=== PATIENT | male | born 1975 | race Two or more races ===

== ENCOUNTER 2016-12-11 17:21 | Emergency (ER) | payer MEDICAID, OTHER ==
[~2016-12-11] VITALS: Ht 175.3 cm; Wt 68.0 kg
[2016-12-11 18:52] LABS: Basophils # (auto) 0 uL; Basophils % (auto) 0.3 % (0.0-2.0); DEFINITIVE VIEW TRANSMISSION; Eosinophils # (auto) 0 uL; Eosinophils % (auto) 0.8 % (0.0-7.0); Hematocrit 38.9 % (41.0-53.0); Hemoglobin 12.4 g/dL (13.5-17.5); Lymphocytes # (auto) 1.9 uL; Lymphocytes % (auto) 45.3 % (10.0-50.0); Mean Corpuscular Hgb Conc. 31.9 g/dL (32.0-36.0); Mean Corpuscular Volume 78.4 fL (80.0-100.0); Mean Platelet Volume 8.3 fL (7.4-10.4); Monocytes # (auto) 0.2 uL; Neutrophils # (auto) 2.1 uL; Neutrophils % (auto) 48.6 % (37.0-80.0); Platelet Count (auto) 317 10^3/uL (140-450); Red Cell Distribution Width 22.3 % (11.6-16.0); White Blood Cell 4.3 10^3/uL (4.4-10.8)
[2016-12-11 19:12] LABS: Albumin 4.2 g/dL (3.4-5.0); Anion Gap 12 (5-15); Aspartate Aminotransferase 16 U/L (15-37); BUN/Creatinine Ratio 7.6; Blood Urea Nitrogen 6 mg/dL (7-18); Calcium 8.8 mg/dL (8.5-10.1); Carbon Dioxide 23 mmol/L (21-32); Chloride 106 mmol/L (98-107); GFR African American 141 mL/min; GFR Non-African American 117 mL/min; Glucose 89 mg/dL (74-106); Potassium 3.8 mmol/L (3.5-5.1); Sodium 141 mmol/L (136-145)
[2016-12-11 19:16] LABS: Alkaline Phosphatase 60 U/L (45-117); Bilirubin, Total 0.3 mg/dL (0.2-1.0); Total Protein 7.7 g/dL (6.4-8.2)
[2016-12-11 19:37] LABS: Anisocytosis Slight; Hypochromia Slight; Ovalocytes FEW; Platelet Estimate Adequate
[2016-12-11] MEDS ORDERED: diphenhdrAMINE HCL 50 MG/1 ML VL IV ONE (20:00)
[2016-12-11] MEDS ORDERED: MORPHINE SULF INJ 2 MG/ML SYRINGE 1ML IV ONE (21:15)
[2016-12-11] MEDS ORDERED: LORazepam 2MG/ML-1ML VIAL IV ONE (22:15)
[2016-12-12 00:18] VITALS: BP 136/82
== END 2016-12-12 00:21 | disposition home or self-care (01) ==
LOC: EDUNIT# 17:21 → ER 17:21
DX: R07.89 Other chest pain (principal); F12.10 Cannabis abuse, uncomplicated; F10.120 Alcohol abuse with intoxication, uncomplicated; F17.210 Nicotine dependence, cigarettes, uncomplicated; Z88.8 Allergy status to other drugs, medicaments and biological substances; Z88.6 Allergy status to analgesic agent
CPT/HCPCS: 36415; 71010; 80053; 84484; 85025; 93005; 96374; 96375; 99285; J1200; J2060; J2270

== ENCOUNTER 2016-12-25 14:12 | Emergency (ER) | payer SELFPAY ==
[~2016-12-25] VITALS: Ht 167.6 cm; Wt 63.5 kg
[2016-12-25] MEDS ORDERED: LORazepam 2MG/ML-1ML VIAL ONE (14:17)
[2016-12-25] MEDS ORDERED: LORazepam 2MG/ML-1ML VIAL IV ONE (15:30)
[2016-12-25] MEDS ORDERED: diphenhdrAMINE HCL 50 MG/1 ML VL IV ONE (15:30)
[2016-12-25] MEDS ORDERED: SODIUM CHLORIDE 0.9% 1,000 ML IV ONE (16:00)
[2016-12-25 17:07] VITALS: BP 113/64
[2016-12-25 17:48] LABS: Urine Bilirubin Negative (Negative); Urine Blood Negative /uL (Negative); Urine Glucose Normal (Normal); Urine Ketone Negative (Negative); Urine Nitrite Negative (Negative); Urine RBC <1 /hpf (0 - 3); Urine Urobilinogen Normal (Negative)
[2016-12-25 17:52] LABS: Urine Color Straw (Yellow)
== END 2016-12-25 19:42 | disposition home or self-care (01) ==
LOC: ER 14:12
DX: F10.129 Alcohol abuse with intoxication, unspecified (principal); Y90.9 Presence of alcohol in blood, level not specified; F12.10 Cannabis abuse, uncomplicated; F17.210 Nicotine dependence, cigarettes, uncomplicated; Z59.0 Homelessness; Z88.6 Allergy status to analgesic agent
CPT/HCPCS: 81001; 96361; 96374; 96375; 99284; J1200; J2060; J7030

== ENCOUNTER 2017-09-29 18:11 | Emergency (ER) | payer MEDICAID ==
[~2017-09-29] VITALS: Ht 167.6 cm; Wt 63.5 kg
[2017-09-29] MEDS ORDERED: LORazepam 2MG/ML-1ML VIAL ONE (18:38)
[2017-09-29] MEDS ORDERED: diphenhdrAMINE HCL 50 MG/1 ML VL ONE (18:57)
[2017-09-29] MEDS ORDERED: LORazepam 2MG/ML-1ML VIAL IM ONE (19:00)
[2017-09-29] MEDS ORDERED: diphenhdrAMINE HCL 50 MG/1 ML VL IV ONE ×2 (19:15→22:15)
[2017-09-29] MEDS ORDERED: LORazepam 2MG/ML-1ML VIAL IV ONE (19:15)
[2017-09-29] MEDS ORDERED: SODIUM CHLORIDE 0.9% 1,000 ML IV SCH ×2 (19:45→20:00)
[2017-09-29 19:58] LABS: Albumin 3.9 g/dL (3.4-5.0); BUN/Creatinine Ratio 8.8; Calcium 8.5 mg/dL (8.5-10.1); Potassium 3.4 mmol/L (3.5-5.1)
[2017-09-29 20:00] LABS: Eosinophils # (auto) 0 uL; Lymphocytes # (auto) 1.4 uL; White Blood Cell 3.6 10^3/uL (4.4-10.8)
[2017-09-29 20:01] LABS: Basophils # (auto) 0 uL; Basophils % (auto) 0.7 % (0.0-2.0); Bilirubin, Total 0.2 mg/dL (0.2-1.0); Eosinophils % (auto) 0.2 % (0.0-7.0); Hematocrit 34.5 % (41.0-53.0); Hemoglobin 11.2 g/dL (13.5-17.5); Lymphocytes % (auto) 38.6 % (10.0-50.0); Mean Corpuscular Hemoglobin 24.6 pg (28.0-32.0); Mean Corpuscular Hgb Conc. 32.4 g/dL (32.0-36.0); Monocytes # (auto) 0.4 uL; Monocytes % (auto) 10.1 % (0.0-12.0); Neutrophils # (auto) 1.8 uL; Neutrophils % (auto) 50.4 % (37.0-80.0); Nucleated Red Blood Cells % 0.2 %; Platelet Count (auto) 285 10^3/uL (140-450); Red Blood Cells 4.55 10^6/uL (4.5-5.90); Red Cell Distribution Width 24.6 % (11.8-14.3); Total Protein 7.5 g/dL (6.4-8.2)
[2017-09-29 21:26] LABS: Urine Bacteria NONE SEEN /hpf (None Seen); Urine Blood Negative /uL (Negative); Urine Mucus FEW (None Seen); Urine WBC <1 /hpf (0 - 3)
[2017-09-29 21:42] LABS: Amphetamine Screen, Urine NEGATIVE (NEGATIVE); Barbiturate Scree,Urine NEGATIVE (NEGATIVE); Benzodiazephine Screen, Urine NEGATIVE (NEGATIVE); Cannabinoid Screen, Urine POSITIVE (NEGATIVE); Cocaine Screen, Urine NEGATIVE (NEGATIVE); Opiate Scree,Urine NEGATIVE (NEGATIVE); Phencyclidine Screen, Urine NEGATIVE (NEGATIVE)
[2017-09-29 22:45] VITALS: BP 131/76
== END 2017-09-29 23:27 | disposition home or self-care (01) ==
LOC: ER 18:11
DX: G92 Toxic encephalopathy (principal); F12.90 Cannabis use, unspecified, uncomplicated; F10.129 Alcohol abuse with intoxication, unspecified; F17.210 Nicotine dependence, cigarettes, uncomplicated; Z88.0 Allergy status to penicillin; Z88.6 Allergy status to analgesic agent; Z59.0 Homelessness
CPT/HCPCS: 36415; 51702; 70450; 80053; 80307; 81001; 82962; 85025; 96361; 96372; 96374; 96376; 99285; J1200; J2060; J7030

== ENCOUNTER 2017-10-01 23:24 | Emergency (ER) | payer MEDICAID ==
[~2017-10-01] VITALS: Ht 167.6 cm; Wt 63.5 kg
[2017-10-02] MEDS ORDERED: EPINEPHrine HCL 1 MG/1 ML AMP SC ONE
[2017-10-02] MEDS ORDERED: ALBUTEROL SULF 2.5 MG/0.5ML(0.5%) NEB SOLN NEB ONE
[2017-10-02] MEDS ORDERED: IPRATROPIUM BROM 0.5 MG/2.5ML INH SOL NEB ONE
[2017-10-02] MEDS ORDERED: SODIUM CHLORIDE 0.9% 1,000 ML IV ONE
[2017-10-02 00:30] LABS: Eosinophils # (auto) 0.1 uL; Lymphocytes # (auto) 1.7 uL; Mean Corpuscular Hemoglobin 24.2 pg (28.0-32.0); Monocytes # (auto) 0.4 uL; White Blood Cell 4.5 10^3/uL (4.4-10.8)
[2017-10-02 00:32] LABS: Basophils # (auto) 0.1 uL; Basophils % (auto) 2.1 % (0.0-2.0); Eosinophils % (auto) 1.7 % (0.0-7.0); Hematocrit 35.2 % (41.0-53.0); Hemoglobin 11.4 g/dL (13.5-17.5); Mean Corpuscular Hgb Conc. 32.2 g/dL (32.0-36.0); Monocytes % (auto) 9.1 % (0.0-12.0); Neutrophils # (auto) 2.2 uL; Neutrophils % (auto) 49.1 % (37.0-80.0); Nucleated Red Blood Cells % 0.2 %; Platelet Count (auto) 277 10^3/uL (140-450)
[2017-10-02 00:34] LABS: Red Cell Distribution Width 24.4 % (11.8-14.3)
[2017-10-02 00:46] LABS: Alanine Aminotransferase 30 U/L (16-61); Anion Gap 10 (5-15); Aspartate Aminotransferase 24 U/L (15-37); BUN/Creatinine Ratio 9.2; Blood Urea Nitrogen 8 mg/dL (7-18); Calcium 8.7 mg/dL (8.5-10.1); Carbon Dioxide 27 mmol/L (21-32); Chloride 108 mmol/L (98-107); GFR African American 126 mL/min; GFR Non-African American 104 mL/min; Glucose 93 mg/dL (74-106); Potassium 3.7 mmol/L (3.5-5.1); Salicylate < 1.7 mg/dL (2.8-20.0); Sodium 145 mmol/L (136-145)
[2017-10-02 00:51] LABS: Alkaline Phosphatase 64 U/L (45-117); Bilirubin, Total 0.2 mg/dL (0.2-1.0); Total Protein 7.7 g/dL (6.4-8.2)
[2017-10-02 00:52] LABS: Acetaminophen < 2.0 ug/mL (10-30)
[2017-10-02] MEDS ORDERED: HYDROcodone-ACET 5/325MG TAB PO ONE (01:45)
[2017-10-02] MEDS ORDERED: NALBUPHINE HCL 10 MG/1ml INJECTION IV ONE (04:30)
[2017-10-02] MEDS ORDERED: ONDANSETRON HCL 4 MG/2 ML VIAL IV ONE (04:30)
[2017-10-02 04:43] VITALS: BP 154/77
[2017-10-02 04:53] LABS: Amylase 112 U/L (25-115); Lipase 308 U/L (73-393)
[2017-10-02] MEDS ORDERED: diphenhdrAMINE HCL 50 MG/1 ML VL IV ONE ×2 (05:00)
[2017-10-02] MEDS ORDERED: methylPREDNISolone SOD SUCC 125 MG/2 ML VL ONE (05:44)
[2017-10-02] MEDS ORDERED: methylPREDNISolone SOD SUCC 125 MG/2 ML VL IV ONE ×2 (05:45)
== END 2017-10-02 07:18 | disposition home or self-care (01) ==
LOC: EDBD 23:24 → ER 23:30
DX: K29.00 Acute gastritis without bleeding (principal); R07.9 Chest pain, unspecified; F10.129 Alcohol abuse with intoxication, unspecified; F12.10 Cannabis abuse, uncomplicated; F17.210 Nicotine dependence, cigarettes, uncomplicated; Z59.0 Homelessness; Z88.1 Allergy status to other antibiotic agents
CPT/HCPCS: 36415; 71010; 74176; 80053; 80320; 80329; 82150; 83690; 83735; 84484; 85025; 94640; 96361; 96372; 96374; 96375; 99285; J0171; J1200; J2300; J2405; J2930; J7030